=== PATIENT | male | born 1985 | race Caucasian/White ===

== ENCOUNTER 2025-04-20 10:18 | Day surgery (SDC) | payer BC, SELFPAY ==
[2025-04-20] VITALS (14 sets, daily range): BP systolic 127–146; BP diastolic 68–83; PULSE 61–74; RESP 16; TEMP 36.7–37.5; O2SAT 93–100
--- NOTE | 2025-04-20 10:43 | ED_ITS ---
HPI - General Adult General Time Seen by Provider: 10:44 Date Seen: 04/20/25 Chief complaint: Sore Throat Stated complaint: Possible abscess in throat Time Seen by Provider: 04/20/25 10:43 Source: patient, RN notes reviewed and old records reviewed Mode of arrival: ambulatory Limitations: no limitations History of Present Illness HPI narrative: This 39-year-old male was referred by urgent care for CT imaging to rule out abscess. Patient has been having sore throat symptoms for about 2 weeks, tested positive for mono today while at urgent care. At the beginning of this illness, he had body aches, did not take his temperature but is sure he had fevers. His sore throat has continued. He was in urgent care on the , had negative strep testing then. He continues to have a sore throat. ENT Dr. Landaverde was contacted today from Urgent Care, they felt there was uvula deviation in tonsillar enlargement. He recommended getting CT imaging to rule out abscess, if no abscess treat with steroids. Patient initially had some abdominal bloating and diarrhea in the beginning, that is resolved. He has no abdominal pain. He has not had really any cough with this. No fevers at this time. He can swallow but there is discomfort with swallowing. The left side is hurting more, left side does hurt with talking. Patient does not participate in any contact sports. Does jog and lift weights. Related Data Home Medications ?Medication ?Instructions ?Recorded ?Confirmed escitalopram oxalate 10 mg tablet 10 mg PO DAILY 04/2004/20/25 Allergies Allergy/AdvReac Type Severity Reaction Status Date / Time No Known Drug Allergies Allergy Verified 04/20/25 10:23 Review of Systems Status of ROS: Reports: 6 or more systems reviewed and unremarkable except as noted in History and below [facility] Social History Smoking Status: Never smoker How often do you have a drink containing alcohol: 2-3 times a week How many standard drinks containing alcohol do you have on a typical day: 3 or 4 How often do you have six or more drinks on one occasion: Never AUDIT-C Alcohol total score: 4 Non-prescribed substance use: denies use Exam Const: Vital Signs, click to edit/add: Vital Signs - 24 hr 04/20/25 10:25 04/20/25 10:48 Temperature 98.0 F Pulse Rate [Pulse Oximeter] 72 Respiratory Rate 16 Blood Pressure [Ri ght Upper Arm] 127/74 Pulse Oximetry 100 98 Oxygen Delivery Me thod Room Air This 39-year-old male is alert, interactive, no apparent distress. He is sitting up in the bed in exam room 1. Pupils are equal round, sclera clear, no jaundice. Symmetrical facial function. Oropharynx reveals enlarged erythematous tonsils with white exudates on both of them, there is some mild asymmetry with left side being larger than right. The swelling does seem to abut the uvula. He opens his mouth wide, no trismus, no hoarseness, no stridor. Neck without any significant adenopathy that is palpable. Lungs are clear, no tachypnea, no wheezing. CV regular rate and rhythm, no murmur. Abdomen is soft, nontender, nondistended, no organomegaly, rebound or guarding. Documenting provider has reviewed patient's vital signs: yes Course Course ED Course: Patient had an IV placed and soft tissue CT of his neck with IV contrast is ordered. Will do a CBC and comprehensive metabolic panel on him. Have discuss ed with him complications of mono including splenomegaly. I would anticipate having mono at age 39 that he may have more prolonged symptoms. We did discuss treatment with steroids if there is no abscess. Reevaluation(s) Time of Reevaluation #1: 12:17 Reevaluation #1: Have provided patient a copy of his CT, ENT is reviewing. He had some water maybe at 7:30 a.m. or 8 this morning, has not eaten today. Outside of having wisdom teeth removed, he has had no surgery. He denies any chronic medical i ssues. He is not aware of any family history of anesthesia complications. He has had no bleeding problems in the past. He should be clear for a trial emergent surgery for drainage of a peritonsillar abscess. Consultations Consultation #1: Dr. Landaverde was called. He will look at CT imaging and contact me back. 12:19 p.m.: He is on his way to come do the surgery. We have discussed patient's NPO status. We will be using clindamycin given that that patient has underlying mono and avoidance of penicillin class/amoxicillin is necessary. Will also give a dose dexamethasone. Will initiate some IV fluids. Time: 12:06 Vital Signs Vital signs: Initial Vital Signs Temperature 98.0 F 11/25/25 10:25 Temperature Source Temporal Artery Scan 04/20/25 10:25 Pulse Rate 72 04/20/25 10:25 Respiratory Rate 16 04/20/25 10:25 Blood Pressure 127/74 04/20/25 10:25 Blood Pressure Mean 91 04/20/25 10:25 Blood Pressure Position Sitting 04/20/25 10:25 Pulse Oximetry 100 04/20/25 10:25 Oxygen Delivery Method Room Air 04/20/25 10:25 Vital Signs Temperature 98.0 F 04/20/25 10:25 Pulse Rate 72 04/20/25 10:25 Respiratory Rate 16 04/20/25 10:25 Blood Pressure 127/74 04/20/25 10:25 Pulse Oximetry 100 04/20/25 10:25 Oxygen Delivery Method Room Air 04/20/25 10:25 Temperature 98.0 F 04/20/25 10:25 Pulse Rate 72 04/20/25 10:25 Respiratory Rate 16 04/20/25 10:25 Blood Pressure 127/74 04/20/25 10:25 Pulse Oximetry 98 04/20/25 10:48 Oxygen Delivery Method Room Air 04/20/25 10:25 Medications Administered Medications: Discontinued Medications Generic Name Dose Route Start Last Admin Trade Name Freq PRN Reason Stop Dose Admin Dexamethasone 10 mg 04/20/25 12:18 04/20/25 12:47 Dexamethasone 10 Mg/Ml Pf IVP 04/20/25 12:19 10 mg ONCE ONE Administration Clindamycin Phosphate 900 mg in 50 mls @ 100 mls/hr 04/20/25 12:18 04/20/25 12:42 Clindamycin 900 Mg/50 Ml-D5w IVPB 04/20/25 12:47 100 mls/hr ONCE ONE Administration Morphine Sulfate 4 mg 04/20/25 12:25 04/20/25 12:51 Morphine 4 Mg/Ml Inj IVP 04/20/25 12:26 4 mg ONCE ONE Administration Ondansetron HCl 4 mg 04/20/25 12:25 04/20/25 12:45 Ondansetron 2 Mg/Ml Inj IVP 04/20/25 12:26 4 mg ONCE ONE Administration Medical Decision Making Lab Data Lab results reviewed: Yes I reviewed the patient's lab results Labs: Lab Results 11/25/25 Range/Units 10:45 WBC 11.08 H (4.50-11.00) K/uL RBC 4.18 L (4.30-5.90) m/uL Hgb 13.5 (13.5-17.5) gm/dL Hct 40.3 (37.0-53.0) % MCV 96 (80-100) fL MCH 32 (26-34) pg MCHC 34 (32-36) gm/dL RDW Coeff of Librado 12.8 (11.5-15.5) % Plt Count 229 (140-440) K/uL Neut % (Auto) 17.9 L (42.0-72.0) % Lymph % (Auto) 75.1 H (20-44) % Rains % (Auto) 6.4 (0.0-11.0) % Eos % (Auto) 0.1 (0.0-7.0) % Baso % (Auto) 0.2 (0.0-3.0) % Neut # (Auto) 2.00 (1.7-7.0) K/uL Lymph # (Auto) 8.30 H (0.90-2.90) K/uL Rains # (Auto) 0.70 (0.00-0.90) K/UL Eos # (Auto) 0.00 (0.00-0.50) K/uL Baso # (Auto) 0.00 (0.00-0.30) K/uL Abs Immat Gran (auto) 0.00 (0.00-0.30) K/uL Imm/Tot Granulo (auto) 0.3 % Sodium 136 (135-149) mmol/L Potassium 4.2 (3.6-5.1) mmol/L Chloride 100 (96-114) mmol/L Carbon Dioxide 28 (20-32) mmol/L Anion Gap 8 (7-15) mEq/L BUN 13 (5-24) mg/dL Creatinine 0.9 (0.5-1.5) mg/dL Estimated GFR 113 ml/min Glucose 99 (60-115) mg/dL Calcium 8.6 (8.4-10.6) mg/dL Total Bilirubin 1.1 (0.1-1.5) mg/dL AST 249 H (12-35) U/L ALT 372 H (4-50) U/L Alkaline Phosphatase 133 (40-150) U/L Total Protein 7.0 (6.0-8.3) g/dL Albumin 3.8 (3.3-5.0) g/dL Imaging Data CT soft tissue neck: Attestation: I have reviewed the pertinent imaging results. Radiologist's impression: Patient: LAURIE NOBLE Facility:?[facility] Patient ID:?[id number] Site Patient ID:?[id number]. Site :?[id number] Study:?CT-ST Neck W/ ISOVUE 370-04/20/2025 11:46:17 AM Ordering Physician:?Geno Young Final Report: INDICATION: Rains, tonsillar swelling, rule out abscess. COMPARISON: None. TECHNIQUE: CT of the neck with contrast. Multiplanar axial, coronal, and sagittal reformats were reconstructed. Intravenous contrast: 96 mL Isovue 370. FINDINGS: Lymph nodes: Mildly enlarged bilateral level II and left level III lymph nodes. The largest lymph node is at level II a and measures 1.3 x 2.7 cm. No ashvin abscess or necrosis. Parotid and submandibular glands: Normal. Thyroid gland: Normal. Tonsils, parapharyngeal spaces, and Airway: The palatine tonsils are enlarged. There is a moderately well defined rim enhancing left peritonsillar abscess that measures 1.3 x 1.6 x 0.9 cm. There is a calcified right tonsillith. There is some mild associated pharyngitis. Normal-size lingual tonsils. Normal epiglottis. There is some effacement of the posterior oropharyngeal airway due to the enlarged tonsils. No complete or high-grade airway obstruction. Paranasal sinus: Normal. Soft tissues: Normal. No swelling. No foreign body. Arteries: No atherosclerosis. Veins: No deep vein thrombosis. Lung apices: Normal. Bones: No fractures. No focal bone lesions. Lower cervical disc degeneration. Included intracranial contents, orbits and mastoids: Normal. IMPRESSION: 1. Tonsillitis with a left peritonsillar abscess. Mild effacement of the posterior oropharyngeal airway without high-grade narrowing or complete obstruction. 2. Bilateral cervical adenitis. No ashvin necrosis or ashvin abscess. Please note that all CT scans at this facility use dose modulation, iterative reconstruction, and/or weight-based dosing when appropriate to reduce radiation dose to as low as reasonably achievable. Dictated by Wanda Reid MD @ 04/20/2025 11:58:24 AM (Electronic Signature) Discharge Plan Discharge Clinical Impression: Abscess, peritonsillar, Mononucleosis, infectious, with hepatitis
--- NOTE | 2025-04-20 10:49 | CRLHL7_ITS ---
For Patients: As a result of the Century Cures Act, medical imaging exams and procedure reports are released immediately into your electronic medical record. You may view this report before your referring provider. If you have questions, please contact your health care provider. INDICATION: Howell, tonsillar swelling, rule out abscess. COMPARISON: None. TECHNIQUE: CT of the neck with contrast. Multiplanar axial, coronal, and sagittal reformats were reconstructed. Intravenous contrast: 96 mL Isovue 370. FINDINGS: Lymph nodes: Mildly enlarged bilateral level II and left level III lymph nodes. The largest lymph node is at level II a and measures 1.3 x 2.7 cm. No ashvin abscess or necrosis. Parotid and submandibular glands: Normal. Thyroid gland: Normal. Tonsils, parapharyngeal spaces, and Airway: The palatine tonsils are enlarged. There is a moderately well defined rim enhancing left peritonsillar abscess that measures 1.3 x 1.6 x 0.9 cm. There is a calcified right tonsillith. There is some mild associated pharyngitis. Normal-size lingual tonsils. Normal epiglottis. There is some effacement of the posterior oropharyngeal airway due to the enlarged tonsils. No complete or high-grade airway obstruction. Paranasal sinus: Normal. Soft tissues: Normal. No swelling. No foreign body. Arteries: No atherosclerosis. Veins: No deep vein thrombosis. Lung apices: Normal. Bones: No fractures. No focal bone lesions. Lower cervical disc degeneration. Included intracranial contents, orbits and mastoids: Normal. IMPRESSION: 1. Tonsillitis with a left peritonsillar abscess. Mild effacement of the posterior oropharyngeal airway without high-grade narrowing or complete obstruction. 2. Bilateral cervical adenitis. No ashvin necrosis or ashvin abscess. Please note that all CT scans at this facility use dose modulation, iterative reconstruction, and/or weight-based dosing when appropriate to reduce radiation dose to as low as reasonably achievable. Dictated by Wanda Reid MD @ 04/20/2025 11:58:24 AM (Electronically Signed)
[2025-04-20 11:04] LABS: Hematocrit* 40.3 % (37.0-53.0); Hemoglobin* 13.5 gm/dL (13.5-17.5); Immature Granulocytes Abs Auto 0.00 K/uL (0.00-0.30); Immature Granulocytes Pct Auto 0.3 %; Lymphocytes Absolute Auto 8.30 K/uL (0.90-2.90); Mean Corpuscular HGB Conc 34 gm/dL (32-36); Mean Corpuscular Hemoglobin 32 pg (26-34); Mean Corpuscular Volume 96 fL (80-100); RDW Coefficient of Variation % 12.8 % (11.5-15.5); Red Blood Count* 4.18 m/uL (4.30-5.90); Slide Review Reflex No; White Blood Count* 11.08 K/uL (4.50-11.00)
[2025-04-20 11:23] LABS: Albumin* 3.8 g/dL (3.3-5.0); Chloride* 100 mmol/L (96-114); Potassium* 4.2 mmol/L (3.6-5.1); Sodium* 136 mmol/L (135-149)
[2025-04-20 11:26] LABS: Alanine Aminotransferase* 372 U/L (4-50); Alkaline Phosphatase* 133 U/L (40-150); Anion Gap 8 mEq/L (7-15); Aspartate Amino Transferase* 249 U/L (12-35); Bilirubin Total* 1.1 mg/dL (0.1-1.5); Blood Urea Nitrogen* 13 mg/dL (5-24); Calcium* 8.6 mg/dL (8.4-10.6); Carbon Dioxide* 28 mmol/L (20-32); Creatinine* 0.9 mg/dL (0.5-1.5); Estimated Glomerular Filt Rate 113 ml/min; Glucose* 99 mg/dL (60-115); Total Protein* 7.0 g/dL (6.0-8.3)
[2025-04-20] MEDS: LACTATED RINGERS 1000 ML 1,000 ML 100 ML IV (12:20)
[2025-04-20] MEDS: CLINDAMYCIN 900 MG/50 ML-D5W 900 MG/50 ML PIGGYBACK 100 MG IVPB (12:42)
[2025-04-20] MEDS: ONDANSETRON 2 MG/ML inj 4 MG IVP (12:45)
[2025-04-20] MEDS: DEXAMETHASONE 10 MG/ML PF IVP (12:47)
--- NOTE | 2025-04-20 12:47 | P.ANES_ITS ---
Anesthesia Charges Start Date/Time Anesthesia Start Date: 04/20/25 Anesthesia Start Time: 12:58 Stop Date/Time Anesthesia Stop Date: 04/20/25 Anesthesia Stop Time: 13:24 Summary Emergency: BOTTLE CLEANER Extremes of Age - Over 70 or under 1: MDA Coding CPT Codes CPT Codes: ANESTH PROCEDURE ON MOUTH - 41280 ([id number]) P2 - PATIENT W/MILD SYST DISEASE, QK - MERCHANDISE EXAMINER 2-4 CNCRNT ANES PROC, QX - BOTTLE CLEANER SVC W/ MD MED DIRECTION Additional Codes: Summary - Extremes of Age - Over 70 or under 1: MDA ([id number]) Summary - Emergency: BOTTLE CLEANER ([id number])
--- NOTE | 2025-04-20 12:47 | W.ANESCHARGE ---
Anesthesia Charges Start Date/Time Anesthesia Start Date: 04/20/25 Anesthesia Start Time: 12:58 Stop Date/Time Anesthesia Stop Date: 04/20/25 Anesthesia Stop Time: 13:24 Summary Emergency: DOCKWORKER Extremes of Age - Over 70 or under 1: MDA Coding CPT Codes CPT Codes: ANESTH PROCEDURE ON MOUTH - 95277 ([id number]) P2 - PATIENT W/MILD SYST DISEASE, QK - PROGRAMMING MANAGER 2-4 CNCRNT ANES PROC, QX - DOCKWORKER SVC W/ MD MED DIRECTION Additional Codes: Summary - Extremes of Age - Over 70 or under 1: MDA ([id number]) Summary - Emergency: DOCKWORKER ([id number])
[2025-04-20] MEDS: MORPHINE 4 MG/ML INJ IVP (12:51)
--- NOTE | 2025-04-20 13:11 | W.PM.ENTCN ---
HPI- ENT Consult Date of Consult Date Seen: 04/20/25 Consult date: 04/20/25 Requesting Physician: Other Primary Care Provider: Not a Local Provider Consult Narrative Reason for consult: Left peritonsillar abscess Narrative: Kory Osorio is a 39 year old male 2 week history sore throat. Seen in urgent care this morning for persistent left throat pain and bilateral throat pain worse on the left. Mild trismus. Asymmetry of tonsillar fossa on either side with the left worse. Tested positive for mono. CT revealed the 0 over 1 cm peritonsillar abscess PFSH PFSH Social History Smoking Status: Never smoker How often do you have a drink containing alcohol: 2-3 times a week How many standard drinks containing alcohol do you have on a typical day: 3 or 4 How often do you have six or more drinks on one occasion: Never AUDIT-C Alcohol total score: 4 Non-prescribed substance use: denies use Meds Home Medications and Allergies Home Medications ?Medication ?Instructions ?Recorded ?Confirmed ?Type escitalopram oxalate 10 mg tablet 10 mg PO DAILY 04/20/25 04/20/25 History Allergies Allergy/AdvReac Type Severity Reaction Status Date / Time No Known Drug Allergies Allergy Verified 04/20/25 10:23 Exam Narrative: Exam Narrative: General skin neuro respiratory gait peripheral vascular vocal quality skin of head neck are all negative except mild trismus, erythema and swelling left soft palate, bilateral exudate of tonsillitis, bilateral cervical adenopathy Const: Vital Signs, click to edit/add: Vital Signs - 24 hr 04/20/25 10:25 04/20/25 10:48 Temperature 98.0 F Pulse Rate [Pulse Oximeter] 72 Respiratory Rate 16 Blood Pressure [Ri ght Upper Arm] 127/74 Pulse Oximetry 100 98 Oxygen Delivery Me thod Room Air ENT-CN: Result Labs Labs: Short CBC 04/20/25 Range/Units 10:45 WBC 11.08 H (4.50-11.00) K/uL Hgb 13.5 (13.5-17.5) gm/dL Hct 40.3 (37.0-53.0) % Plt Count 229 (140-440) K/uL BMP 04/20/25 10:45 Sodium 136 Potassium 4.2 Chloride 100 Carbon Dioxide 28 BUN 13 Creatinine 0.9 Glucose 99 Calcium 8.6 Liver Function 04/20/25 Range/Units 10:45 Total Bilirubin 1.1 (0.1-1.5) mg/dL AST 249 H (12-35) U/L ALT 372 H (4-50) U/L Alkaline Phosphatase 133 (40-150) U/L Albumin 3.8 (3.3-5.0) g/dL Assessment and Plan Assessment and plan (1) Abscess, peritonsillar: Status: Acute (2) Mononucleosis, infectious, with hepatitis: Status: Acute Plan left peritonsillar abscess. Discussed option of medical treatment versus incision drainage. Would favor incision and drainage. Risks include anesthesia bleeding recurrence injury to adjacent structures etc.. Will not be able to use penicillins due to his infectious mononucleosis
--- NOTE | 2025-04-20 13:14 | W.PM.ENTPROC ---
Procedure Note Date of procedure: 04/20/25 Procedure: preop diagnosis infectious mononucleosis, left peritonsillar abscess Postop diagnosis same Procedure incision drainage left peritonsillar abscess with irrigation and culture Under general trach anesthesia patient was prepped and draped usual fashion. McIvor mouth gag was inserted the tongue retracted forward. Incision was made with needlepoint cautery amount all of above the superior lateral tonsil pole. Bleeding was controlled with suction cautery. Blunt dissection was used to then enter the abscess just beneath the incision. Culture was obtained. The abscess cavity was irrigated. There was minimal bleeding. The patient was extubated in the operating taken recovery in satisfactory condition. Blood loss less than 10 mL. Surgeon: Ajay Landaverde MD
--- NOTE | 2025-04-20 13:23 | P.ANES_ITS ---
Anesthesia Charges Start Date/Time Anesthesia Start Date: 04/20/25 Anesthesia Start Time: 12:58 Stop Date/Time Anesthesia Stop Date: 04/20/25 Anesthesia Stop Time: 13:24 Summary Emergency: LABORER HIGH DENSITY PRESS Coding CPT Codes CPT Codes: ANESTH PROCEDURE ON MOUTH - 62677 ([id number]) P2 - PATIENT W/MILD SYST DISEASE, QK - MANAGER FARM 2-4 CNCRNT ANES PROC, QX - LABORER HIGH DENSITY PRESS SVC W/ MD MED DIRECTION Additional Codes: Summary - Emergency: LABORER HIGH DENSITY PRESS ([id number])
--- NOTE | 2025-04-20 13:23 | W.ANESCHARGE ---
Anesthesia Charges Start Date/Time Anesthesia Start Date: 04/20/25 Anesthesia Start Time: 12:58 Stop Date/Time Anesthesia Stop Date: 04/20/25 Anesthesia Stop Time: 13:24 Summary Emergency: GRINDER SET UP OPERATOR SURFACE Coding CPT Codes CPT Codes: ANESTH PROCEDURE ON MOUTH - 71850 ([id number]) P2 - PATIENT W/MILD SYST DISEASE, QK - MID TEACHER 2-4 CNCRNT ANES PROC, QX - GRINDER SET UP OPERATOR SURFACE SVC W/ MD MED DIRECTION Additional Codes: Summary - Emergency: GRINDER SET UP OPERATOR SURFACE ([id number])
[2025-04-20] MEDS: IBUPROFEN 100 MG/5 ML SUSP 200 MG PO (14:01)
[2025-04-20] MEDS: ACETAMINOPHEN 160 MG/5 ML CUP 320 MG PO (14:01)
== END 2025-04-20 15:13 | disposition home or self-care (01) ==
LOC: ED 12:19 → OR 12:58
PROVIDERS: Emergency Provider Family Medicine; Visit Provider Otolaryngology
PROC: 0C9PXZZ Drainage of Tonsils, External Approach (ICD-10-PCS; CPT 42700; principal; 2025-04-20 13:00)
DX: J36 Peritonsillar abscess (principal); B27.89 Other infectious mononucleosis with other complication; B96.89 Other specified bacterial agents as the cause of diseases classified elsewhere
CPT/HCPCS: 42700; 00170; 36415; 70491; 80053; 85025; 87070; 87075; 87205; 94761; 99100; 99140; 99284; 99285; A9270; J0330; J0736; J1100; J2250; J2270; J2405; J2704; J3010; J7120; Q9967